=== PATIENT | female | born 1955 | race Caucasian/White ===

== ENCOUNTER 2019-04-03 13:36 | Emergency (ER) | payer BC ==
[~2019-04-03] VITALS: Ht 152.4 cm; Wt 83.5 kg
--- NOTE | 2019-04-03 13:57 | NUR ---
PT BIB SELF C/O GENERALIZED WEAKNESS,DIARRHEA AND NAUSEA X 1 WEEK, PT IS AAOX4, NOT IN RESPIRATORY DISTRESS, HOOKED TO MONITOR, KEPT RESTED AND COMFORTABLE, WILL CONTINUE TO MONITOR.
--- NOTE | 2019-04-03 14:36 | NUR ---
SEEN AND EXAMINED BY DR. BULL.
[2019-04-03] MEDS ORDERED: MAG HYDROX/AL HYDROX/SIMETH 30 ML UDC ONE (14:39)
[2019-04-03] MEDS ORDERED: FAMOTIDINE/PF INJ 20 MG/2 ML VIAL IV ONE ×2 (14:39→15:00)
--- NOTE | 2019-04-03 14:50 | NUR ---
IV LINE ESTABLISHED, BLOOD DRAWNED AND SENT TO LAB.
--- NOTE | 2019-04-03 14:52 | NUR ---
PT COMPLAINT OF BURNING SENSATION IN THE CHEST.
[2019-04-03 15:00] LABS: BASOPHILS # (AUTO) 0.1 /CMM (0.0-0.2); BASOPHILS % (AUTO) 0.8 % (0.0-2.0); EOSINOPHILS % (AUTO) 0.4 % (0.0-6.0); HEMATOCRIT 46 % (33-45); HEMOGLOBIN 15.2 g/dL (11.5-14.8); LYMPHOCYTES # (AUTO) 2.1 /CMM (0.8-4.8); LYMPHOCYTES % (AUTO) 14.4 % (20.0-44.0); MEAN CORPUSCULAR HGB CONC 34 g/dl (31.0-36.0); MEAN CORPUSCULAR VOLUME 95 fL (82-100); MONOCYTES # (AUTO) 0.6 /CMM (0.1-1.30); MONOCYTES % (AUTO) 3.9 % (2.0-12.0); NEUTROPHILS # (AUTO) 11.9 /CMM (1.8-8.9); NEUTROPHILS % (AUTO) 80.5 % (43.0-81.0); PLATELET COUNT (AUTO) 268 /CMM (150-450); RED BLOOD CELL COUNT(AUTO) 4.77 MIL/uL (4.0-5.2); WHITE BLOOD COUNT (AUTO) 14.8 K/uL (4.3-11.0)
[2019-04-03] MEDS ORDERED: MAG HYDROX/AL HYDROX/SIMETH 30 ML UDC PO ONE (15:00)
[2019-04-03] MEDS ORDERED: IV NS 0.9% 1,000 ML BAG IV ONE (15:00)
[2019-04-03 15:07] LABS: CALCIUM, SERUM 11.4 mg/dL (8.5-10.1); POTASSIUM 3.9 mmol/L (3.5-5.1)
[2019-04-03 15:12] LABS: BILIRUBIN,DIRECT 0.1 mg/dL (0.0-0.2); BILIRUBIN,TOTAL 0.5 mg/dL (0.2-1.0); TOTAL PROTEIN, SERUM 8.6 g/dL (6.4-8.2)
[2019-04-03] MEDS ORDERED: ASPIRIN 81 MG TAB.CHEW ONE (15:53)
[2019-04-03] MEDS ORDERED: MORPHINE SULFATE INJ 2 MG/ML DISP.SYRIN ONE (15:53)
[2019-04-03] MEDS ORDERED: MORPHINE SULFATE INJ 2 MG/ML DISP.SYRIN IV ONE (16:00)
[2019-04-03] MEDS ORDERED: ASPIRIN 81 MG TAB.CHEW PO ONE (16:00)
--- NOTE | 2019-04-03 16:06 | NUR ---
SPOKED TO [facility] FOR REPORT.
[2019-04-03] MEDS ORDERED: HEPARIN SODIUM, PORCINE 5000 UNITS/1 ML VIAL IV ONE (16:30)
[2019-04-03] MEDS ORDERED: CLOPIDOGREL BISULFATE 75 MG TABLET ONE (16:30)
[2019-04-03] MEDS ORDERED: CLOPIDOGREL BISULFATE 75 MG TABLET PO ONE (16:30)
[2019-04-03] MEDS ORDERED: HEPARIN INFUSION/D5W 500 ML IV ONE ×2 (16:30→16:36)
[2019-04-03] MEDS ORDERED: HEPARIN SODIUM, PORCINE 5000 UNITS/1 ML VIAL ONE (16:36)
--- NOTE | 2019-04-03 16:52 | NUR ---
HEPARIN DRIP INFUSING WHILE ON TRANSFER TO [facility], TITRATE TO EFFECT.
[2019-04-03] MEDS ORDERED: EPTIFIBATIDE IV ONE (17:00)
[2019-04-03] MEDS ORDERED: CLOPIDOGREL BISULFATE 300 MG TABLET PO ONE (17:00)
[2019-04-03] MEDS ORDERED: [UNRECOGNIZED DRUG - OTHER] IV ONE (17:00)
--- NOTE | 2019-04-03 17:00 | NUR ---
PT IS TRANSPORTED TO [facility].
[2019-04-03 17:10] VITALS: BP 144/87
== END 2019-04-03 17:12 | disposition short-term general hospital (02) ==
LOC: ER 13:36
DX: I21.3 ST elevation (STEMI) myocardial infarction of unspecified site (principal); R19.7 Diarrhea, unspecified; I10 Essential (primary) hypertension; Z98.890 Other specified postprocedural states; Z60.2 Problems related to living alone
CPT/HCPCS: 36415; 80048; 80076; 83690; 84484; 85025; 85730; 93005; 96361; 96365; 96375; 96376; 99291; J1644 ×2; J2270; J3490; J7030